=== PATIENT | male | born 1985 | race Caucasian/White ===

== ENCOUNTER 2016-07-25 13:44 | Emergency (ER) | payer SELFPAY ==
[~2016-07-25] VITALS: Ht 180.3 cm; Wt 88.5 kg
[~2016-07-25 13:44] MED LIST: AMOXIL40 MG/M1 PO; AMOXIL500 MG PO; BACTRIM DS 8001 TA1 PO; CEFADROXIL500 M1 PO; HYCODAN/HYDROMET5 ML PO; HYDROXYZINE PAM50 MG PO; IBU800 M1 PO; KEFLEX500 MG PO; LOMOTIL 0.025 M1 TA1 PO; ONDANSETRON HYDR4 M1 PO; PREDNISONE20 MG PO; SINEMET 25-100M1 TAB PO; TRAMADOL HCL50 MG PO; VICODIN 5/500 505 MG PO; VICODIN 500 MG-1 TAB PO
[2016-07-25] MEDS ORDERED: CLARITIN10 MG PO (14:01)
[2016-07-25] MEDS ORDERED: ROBITUSSIN AC 110 ML PO (14:01)
[2016-07-25] MEDS ORDERED: PREDNISONE10 MG PO (14:01)
[2016-07-25] MEDS ORDERED: FLONASE ALLERG9.9 ML NAS (14:01)
[2016-07-25] MEDS ORDERED: ROBITUSSIN DM 105 ML PO (14:49)
[2016-09-14] MEDS ORDERED: NORCO 5-325 TA1 EACH PO (12:08)
== END 2016-07-25 14:53 | disposition home or self-care (01) ==
LOC: ED 13:44
DX: B34.9 Viral infection, unspecified (principal); R03.0 Elevated blood-pressure reading, without diagnosis of hypertension; F19.10 Other psychoactive substance abuse, uncomplicated; F17.200 Nicotine dependence, unspecified, uncomplicated

== ENCOUNTER 2019-05-01 23:49 | Emergency (ER) | payer OTHER ==
[~2019-05-01] VITALS: Ht 180.3 cm; Wt 81.6 kg
[~2019-05-01 23:49] MED LIST changes: +CLARITIN10 MG PO; +FLONASE ALLERG9.9 ML NAS; +NORCO 5-325 TA1 EACH PO; +PREDNISONE10 MG PO; +ROBITUSSIN AC 110 ML PO; +ROBITUSSIN DM 105 ML PO
[2019-05-02 00:22] LABS: BASO # 0.1 10*3/uL (0.0-0.1); BASO % 0.7 % (0.0-1.0); EOS # 0.6 10*3/uL (0.0-0.4); EOS % 6.2 % (1.0-4.0); HEMOGLOBIN 13.7 g/dl (14.0-18.0); LYMPH # 4.2 10*3/uL (1.3-4.4); LYMPH % 42.3 % (27.0-41.0); MEAN CELL VOLUME 88.2 fl (80.0-94.0); MEAN CORPUSCULAR HGB 28.8 pg (27.0-31.0); MEAN CORPUSCULAR HGB CONC 32.6 g/dl (33.0-37.0); MEAN PLATELET VOLUME 9.7 fl (9.6-12.3); MONO % 10.2 % (3.0-9.0); NEUT # 4.1 10*3/uL (2.3-7.9); NEUT % 40.4 % (47.0-73.0); PLATELET COUNT AUTOMATED 263 10*3/uL (130-400); RED BLOOD COUNT 4.76 10*6/uL (4.50-5.90); RED CELL DISTRI WIDTH 13.7 % (0-14.5)
[2019-05-02 00:45] LABS: ALBUMIN 3.5 gm/dl (3.1-4.5); ALKALINE PHOSPHATASE 85 U/L (45-117); BUN 16 mg/dl (7-24); CHLORIDE 106 mmol/L (98-107); CREATININE 1.02 mg/dL (0.70-1.30); POTASSIUM 3.8 mmol/L (3.5-5.1); SGOT/AST 16 IU/L (3-35); SGPT/ALT 26 U/L (12-78); SODIUM 139 mmol/L (136-145)
[2019-05-02] MEDS ORDERED: CLINDAMYCIN HC300 MG PO (02:10)
== END 2019-05-02 02:55 | disposition home or self-care (01) ==
LOC: ED 23:49
PROVIDERS: Emergency Medicine
DX: L03.211 Cellulitis of face (principal); K08.89 Other specified disorders of teeth and supporting structures; F17.200 Nicotine dependence, unspecified, uncomplicated

== ENCOUNTER 2020-01-11 16:12 | Inpatient (IN) | payer OTHER ==
[~2020-01-11] VITALS: Ht 180.3 cm; Wt 81.2 kg
[~2020-01-11 16:12] MED LIST changes: +CLINDAMYCIN HC300 MG PO
[2020-01-11 16:16] VITALS: BP 114/80
[2020-01-11 17:30] VITALS: BP 110/80
[2020-01-11 18:40] VITALS: BP 130/85
[2020-01-11 19:28] LABS: ALKALINE PHOSPHATASE 91 U/L (45-117); BUN 8 mg/dl (7-24); CHLORIDE 108 mmol/L (98-107); CREATININE 1.12 mg/dL (0.70-1.30); POTASSIUM 3.3 mmol/L (3.5-5.1); SGOT/AST 11 IU/L (3-35); SGPT/ALT 21 U/L (12-78); SODIUM 137 mmol/L (136-145); TOTAL PROTEIN 8.7 gm/dL (6.4-8.2)
[2020-01-11 19:48] LABS: BASO # 0.1 10*3/uL (0.0-0.1); BASO % 0.7 % (0.0-1.0); EOS # 0.2 10*3/uL (0.0-0.4); EOS % 1.7 % (1.0-4.0); HEMATOCRIT 44.6 % (42.0-52.0); LYMPH # 3.5 10*3/uL (1.3-4.4); LYMPH % 35.9 % (27.0-41.0); MEAN CELL VOLUME 81.8 fl (80.0-94.0); MEAN CORPUSCULAR HGB 27.7 pg (27.0-31.0); MEAN CORPUSCULAR HGB CONC 33.9 g/dl (33.0-37.0); MONO # 0.7 10*3/uL (0.1-1.0); MONO % 7.3 % (3.0-9.0); NEUT # 5.3 10*3/uL (2.3-7.9); NEUT % 54.2 % (47.0-73.0); PLATELET COUNT AUTOMATED 315 10*3/uL (130-400); RED BLOOD COUNT 5.45 10*6/uL (4.50-5.90); RED CELL DISTRI WIDTH 14.4 % (0-14.5); WHITE BLOOD COUNT 9.8 10*3/uL (4.8-10.8)
[2020-01-11 20:00] VITALS: BP 107/70
[2020-01-11 20:05] LABS: URINE AMPHETAMINES > 1000 (1000ng/ml); URINE BARBITURATES < 200 (200ng/ml); URINE BENZODIAZEPINES < 200 (200ng/ml); URINE CANNABINOIDS (THC) < 50 (50ng/ml); URINE COCAINE < 300 (300ng/ml); URINE METHADONE < 300 (300ng/ml); URINE OPIATES > 300 (300ng/ml)
[2020-01-11 20:08] LABS: CLARITY CLEAR (CLEAR); COLOR YELLOW (YELLOW)
[2020-01-11 20:10] LABS: BACTERIA TRACE; BILIRUBIN NEGATIVE (NEGATIVE); BLOOD NEGATIVE (NEGATIVE); GLUCOSE NEGATIVE (NEGATIVE); KETONE NEGATIVE (NEGATIVE); LEUKO ESTERASE NEGATIVE (NEGATIVE); MUCOUS 2+; NITRITE NEGATIVE (NEGATIVE); RBC 0-2 rbc/hpf (0-2); UROBILINOGEN 0.2 E.U./dl (0.2-1.0)
[2020-01-11 20:14] LABS: URINE PHENCYCLIDINE < 25 (25ng/ml)
[2020-01-12] VITALS: BP 92/58
[2020-01-12 08:00] VITALS: BP 125/72
[2020-01-12 12:00] VITALS: BP 119/67
[2020-01-12 16:00] VITALS: BP 129/74
[2020-01-12 20:00] VITALS: BP 116/69
[2020-01-13] VITALS: BP 92/56
[2020-01-13 08:00] VITALS: BP 115/74
== END 2020-01-13 08:02 | disposition left against medical advice (07) | DRG 894 ==
LOC: ED 16:12 → 5E 18:26 → EDHOLD 18:26 → 5E 18:33
PROVIDERS: Internal Medicine; ADMIT Internal Medicine
DX: F11.23 Opioid dependence with withdrawal (principal); G25.81 Restless legs syndrome; E87.6 Hypokalemia; F41.9 Anxiety disorder, unspecified; F17.210 Nicotine dependence, cigarettes, uncomplicated; Z53.29 Procedure and treatment not carried out because of patient's decision for other reasons; Z71.6 Tobacco abuse counseling; Z80.1 Family history of malignant neoplasm of trachea, bronchus and lung

== ENCOUNTER 2020-07-07 08:42 | Emergency (ER) | payer OTHER ==
[~2020-07-07] VITALS: Ht 182.8 cm; Wt 88.5 kg
[2020-07-07 09:42] LABS: BASO # 0.1 10*3/uL (0.0-0.1); BASO % 0.5 % (0.0-1.0); EOS # 0.6 10*3/uL (0.0-0.4); HEMATOCRIT 39.9 % (42.0-52.0); LYMPH # 3.9 10*3/uL (1.3-4.4); LYMPH % 40.6 % (27.0-41.0); MEAN CELL VOLUME 85.6 fl (80.0-94.0); MEAN CORPUSCULAR HGB 27.3 pg (27.0-31.0); MEAN CORPUSCULAR HGB CONC 31.8 g/dl (33.0-37.0); MEAN PLATELET VOLUME 9.3 fl (9.6-12.3); MONO % 10.4 % (3.0-9.0); NEUT # 4.1 10*3/uL (2.3-7.9); NEUT % 42.3 % (47.0-73.0); PLATELET COUNT AUTOMATED 259 10*3/uL (130-400); RED BLOOD COUNT 4.66 10*6/uL (4.50-5.90); RED CELL DISTRI WIDTH 13.8 % (0-14.5); WHITE BLOOD COUNT 9.6 10*3/uL (4.8-10.8)
[2020-07-07 09:53] LABS: ACT PARTIAL THROMBO TIME 28.8 SECONDS (20.0-32.1); INTERNATIONAL NORM RATIO 0.9 (2.0-3.5)
[2020-07-07 09:58] LABS: ALBUMIN 3.4 gm/dl (3.1-4.5); ALKALINE PHOSPHATASE 86 U/L (45-117); BUN 11 mg/dl (7-24); CHLORIDE 109 mmol/L (98-107); CREATININE 0.99 mg/dL (0.70-1.30); POTASSIUM 3.7 mmol/L (3.5-5.1); SGOT/AST 16 IU/L (3-35); SGPT/ALT 25 U/L (12-78); SODIUM 141 mmol/L (136-145); TOTAL PROTEIN 7.4 gm/dL (6.4-8.2); URIC ACID 5.5 mg/dL (3.5-7.2)
[2020-07-07] MEDS ORDERED: SEPTDS PO (11:03)
[2020-07-07] MEDS ORDERED: KEFLEX500 M1 PO (11:03)
[2020-07-07] MEDS ORDERED: TYLENOL325 M1 PO (11:03)
[2020-07-07] MEDS ORDERED: NAPROSYN500 MG PO (11:03)
== END 2020-07-07 11:04 | disposition home or self-care (01) ==
LOC: ED 08:42
PROVIDERS: Emergency Medicine
DX: L03.116 Cellulitis of left lower limb (principal); M25.572 Pain in left ankle and joints of left foot; Z87.891 Personal history of nicotine dependence

== ENCOUNTER 2020-07-23 13:34 | Emergency (ER) | payer OTHER ==
[~2020-07-23] VITALS: Wt 90.7 kg
[~2020-07-23 13:34] MED LIST changes: +KEFLEX500 M1 PO; +NAPROSYN500 MG PO; +SEPTDS PO; +TYLENOL325 M1 PO
== END 2020-07-23 17:23 | disposition home or self-care (01) ==
LOC: ED 13:34
DX: F11.10 Opioid abuse, uncomplicated (principal); F17.200 Nicotine dependence, unspecified, uncomplicated; Z79.899 Other long term (current) drug therapy; Z79.2 Long term (current) use of antibiotics; Z98.890 Other specified postprocedural states

== ENCOUNTER 2021-11-04 13:00 | Inpatient (IN) | payer OTHER ==
[~2021-11-04] VITALS: Ht 182.8 cm; Wt 113.4 kg
[2021-11-04 13:29] VITALS: BP 123/84
[2021-11-04 14:01] LABS: BASO % 0.2 % (0.0-1.0); EOS % 0.2 % (1.0-4.0); HEMATOCRIT 41.1 % (42.0-52.0); LYMPH # 2.5 10*3/uL (1.3-4.4); LYMPH % 14.5 % (27.0-41.0); MEAN CORPUSCULAR HGB 27.3 pg (27.0-31.0); MEAN CORPUSCULAR HGB CONC 33.3 g/dl (33.0-37.0); MEAN PLATELET VOLUME 9.2 fl (9.6-12.3); MONO % 5.8 % (3.0-9.0); NEUT # 13.4 10*3/uL (2.3-7.9); NEUT % 78.8 % (47.0-73.0); PLATELET COUNT AUTOMATED 329 10*3/uL (130-400); RED BLOOD COUNT 5.01 10*6/uL (4.50-5.90); RED CELL DISTRI WIDTH 13.6 % (0-14.5)
[2021-11-04 14:21] LABS: BILIRUBIN Negative (Negative); BLOOD Negative (Negative); CLARITY Clear (Clear); COLOR Yellow (Yellow); GLUCOSE Negative (Negative); KETONE Negative (Negative); LEUKO ESTERASE Negative (Negative); NITRITE Negative (Negative); PH 5.5 (4.5-8.0); SPECIFIC GRAVITY 1.015 (1.001-1.030)
[2021-11-04 14:33] LABS: ALKALINE PHOSPHATASE 107 U/L (45-117); BUN 10 mg/dl (7-24); CHLORIDE 105 mmol/L (98-107); CREATININE 1.04 mg/dL (0.70-1.30); POTASSIUM 4.2 mmol/L (3.5-5.1); SGOT/AST 15 IU/L (3-35); SGPT/ALT 29 U/L (12-78); SODIUM 134 mmol/L (136-145); TOTAL PROTEIN 8.4 gm/dL (6.4-8.2)
[2021-11-04 14:33] LABS: URINE AMPHETAMINES < 1000 (1000ng/ml); URINE BARBITURATES < 200 (200ng/ml); URINE BENZODIAZEPINES < 200 (200ng/ml); URINE CANNABINOIDS (THC) < 50 (50ng/ml); URINE COCAINE > 300 (300ng/ml); URINE METHADONE < 300 (300ng/ml); URINE OPIATES > 300 (300ng/ml); URINE PHENCYCLIDINE < 25 (25ng/ml)
[2021-11-04 14:41] LABS: ETHYL ALCOHOL < 3.0 mg/dl (<3)
[2021-11-04 14:47] LABS: RBC 0-2 rbc/hpf (0-2)
[2021-11-04 17:30] VITALS: BP 113/75
[2021-11-04 18:08] VITALS: BP 121/86
[2021-11-04 20:00] VITALS: BP 117/69
[2021-11-05] VITALS (8 sets, daily range): BP systolic 109–142; BP diastolic 55–89
[2021-11-05 06:30] LABS: BASO # 0.1 10*3/uL (0.0-0.1); BASO % 0.4 % (0.0-1.0); EOS # 0.3 10*3/uL (0.0-0.4); HEMATOCRIT 39.4 % (42.0-52.0); LYMPH % 23.5 % (27.0-41.0); MEAN CELL VOLUME 83.1 fl (80.0-94.0); MEAN CORPUSCULAR HGB 27.8 pg (27.0-31.0); MEAN CORPUSCULAR HGB CONC 33.5 g/dl (33.0-37.0); MEAN PLATELET VOLUME 9.2 fl (9.6-12.3); MONO % 7.6 % (3.0-9.0); NEUT # 8.6 10*3/uL (2.3-7.9); NEUT % 66.2 % (47.0-73.0); PLATELET COUNT AUTOMATED 288 10*3/uL (130-400); RED BLOOD COUNT 4.74 10*6/uL (4.50-5.90); RED CELL DISTRI WIDTH 13.7 % (0-14.5); WHITE BLOOD COUNT 12.9 10*3/uL (4.8-10.8)
[2021-11-05 06:55] LABS: CHLORIDE 113 mmol/L (98-107); POTASSIUM 4.2 mmol/L (3.5-5.1); SODIUM 140 mmol/L (136-145)
[2021-11-05 07:09] LABS: ALKALINE PHOSPHATASE 89 U/L (45-117); BUN 11 mg/dl (7-24); CREATININE 1.05 mg/dL (0.70-1.30); FREE T4 1.77 ng/dl (0.76-1.46); SGOT/AST 17 IU/L (3-35); SGPT/ALT 24 U/L (12-78); THYROID STIM HORMONE (HS) 0.917 uIU/ml (0.358-4.75)
[2021-11-06] VITALS: BP 118/59
[2021-11-06 05:08] LABS: ALKALINE PHOSPHATASE 78 U/L (45-117); BUN 10 mg/dl (7-24); CHLORIDE 116 mmol/L (98-107); CREATININE 1.11 mg/dL (0.70-1.30); POTASSIUM 4.4 mmol/L (3.5-5.1); SGOT/AST 18 IU/L (3-35); SGPT/ALT 22 U/L (12-78); SODIUM 142 mmol/L (136-145); TOTAL PROTEIN 6.3 gm/dL (6.4-8.2)
[2021-11-06 07:25] LABS: BASO # 0.1 10*3/uL (0.0-0.1); BASO % 0.6 % (0.0-1.0); EOS # 0.8 10*3/uL (0.0-0.4); EOS % 7.6 % (1.0-4.0); HEMATOCRIT 34.3 % (42.0-52.0); LYMPH # 3.6 10*3/uL (1.3-4.4); LYMPH % 36.2 % (27.0-41.0); MEAN CELL VOLUME 82.9 fl (80.0-94.0); MEAN CORPUSCULAR HGB 27.5 pg (27.0-31.0); MEAN CORPUSCULAR HGB CONC 33.2 g/dl (33.0-37.0); MONO # 0.7 10*3/uL (0.1-1.0); MONO % 6.5 % (3.0-9.0); NEUT # 4.9 10*3/uL (2.3-7.9); NEUT % 48.9 % (47.0-73.0); PLATELET COUNT AUTOMATED 252 10*3/uL (130-400); RED BLOOD COUNT 4.14 10*6/uL (4.50-5.90); RED CELL DISTRI WIDTH 13.8 % (0-14.5); WHITE BLOOD COUNT 9.9 10*3/uL (4.8-10.8)
[2021-11-06 08:00] VITALS: BP 116/71
[2021-11-06 12:00] VITALS: BP 129/70
[2021-11-06 16:00] VITALS: BP 121/74
[2021-11-06 20:00] VITALS: BP 130/72
[2021-11-07] VITALS: BP 116/62
[2021-11-07 06:09] LABS: BASO # 0.1 10*3/uL (0.0-0.1); BASO % 0.6 % (0.0-1.0); EOS # 0.6 10*3/uL (0.0-0.4); EOS % 5.3 % (1.0-4.0); HEMATOCRIT 37.4 % (42.0-52.0); LYMPH # 2.9 10*3/uL (1.3-4.4); LYMPH % 25.2 % (27.0-41.0); MEAN CELL VOLUME 81.5 fl (80.0-94.0); MEAN CORPUSCULAR HGB 27.5 pg (27.0-31.0); MEAN CORPUSCULAR HGB CONC 33.7 g/dl (33.0-37.0); MEAN PLATELET VOLUME 9.4 fl (9.6-12.3); MONO # 0.7 10*3/uL (0.1-1.0); MONO % 6.3 % (3.0-9.0); NEUT # 7.1 10*3/uL (2.3-7.9); NEUT % 62.3 % (47.0-73.0); PLATELET COUNT AUTOMATED 325 10*3/uL (130-400); RED BLOOD COUNT 4.59 10*6/uL (4.50-5.90); RED CELL DISTRI WIDTH 13.5 % (0-14.5); WHITE BLOOD COUNT 11.4 10*3/uL (4.8-10.8)
[2021-11-07 06:22] LABS: BUN 11 mg/dl (7-24); CHLORIDE 113 mmol/L (98-107); CREATININE 1.29 mg/dL (0.70-1.30); POTASSIUM 3.6 mmol/L (3.5-5.1); SODIUM 144 mmol/L (136-145)
[2021-11-07 08:00] VITALS: BP 148/69
[2021-11-07] MEDS ORDERED: VIBRA-TAB100 MG PO (11:10)
[2021-11-07] MEDS ORDERED: VISTARIL25 MG PO (11:10)
== END 2021-11-07 11:17 | disposition home or self-care (01) | DRG 854 ==
LOC: ED 13:00 → 4E 17:26 → EDHOLD 17:26 → 4E 17:36 → EDHOLD 17:36 → 4E 11-07 11:17
PROVIDERS: Internal Medicine; Physician Assistant; ADMIT Internal Medicine; ATTEND Internal Medicine
PROC: 0W960ZZ Drainage of Neck, Open Approach (ICD-10-PCS; principal; 2021-11-05)
PROC: 02HV33Z Insertion of Infusion Device into Superior Vena Cava, Percutaneous Approach (ICD-10-PCS; 2021-11-05)
PROC: B548ZZA Ultrasonography of Superior Vena Cava, Guidance (ICD-10-PCS; 2021-11-05)
DX: A41.9 Sepsis, unspecified organism (principal); L03.221 Cellulitis of neck; L02.11 Cutaneous abscess of neck; E87.1 Hypo-osmolality and hyponatremia; F11.13 Opioid abuse with withdrawal; R73.9 Hyperglycemia, unspecified; F14.10 Cocaine abuse, uncomplicated; D64.9 Anemia, unspecified; F17.210 Nicotine dependence, cigarettes, uncomplicated; F41.9 Anxiety disorder, unspecified; Z80.1 Family history of malignant neoplasm of trachea, bronchus and lung; Z71.6 Tobacco abuse counseling

== ENCOUNTER 2021-11-09 21:13 | Emergency (ER) | payer OTHER ==
[~2021-11-09] VITALS: Ht 170.1 cm; Wt 106.6 kg
[~2021-11-09 21:13] MED LIST changes: +VIBRA-TAB100 MG PO; +VISTARIL25 MG PO
== END 2021-11-09 21:59 | disposition home or self-care (01) ==
LOC: ED 21:13
DX: Z48.01 Encounter for change or removal of surgical wound dressing (principal)